=== PATIENT | female | born 1975 | race Caucasian/White ===

== ENCOUNTER 2020-12-14 13:17 | Emergency (ER) | payer OTHER ==
[2020-12-14] MEDS ORDERED: Adacel Vial IM ONE ×2 (13:25→13:33)
[2020-12-14 13:26] VITALS: BP 141/94; PULSE 89; O2SAT 98
--- NOTE | 2020-12-14 13:38 | XRAY ---
Indication: Pain following injury. Comparison: None 3 view right 3rd finger obtained. No bony, articular, or soft tissue abnormalities.
--- NOTE | 2020-12-14 13:47 | ERPHSYRPT ---
- History of Present Illness Source: patient Exam Limitations: no limitations Patient Subjective Stated Complaint: finger injury, shut 3rd digit of R hand in trailer door Triage Nursing Assessment: pt to ED c/o finger injury, r hand 3rd digit. 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 bleeding and open to air on arrival. pt states "worst pain ever" when asked to rate 1-10. unable to assess cap refil d/t injury location. unknown last tetanus. Physician History: R 3rd digit vs trailor door before arrival. Pt is R handed and denies other/previous injury. Pain is mild. Tetanus needs to be updated. Occurred: just prior to arrival Method of Injury: direct blow (Door vs finger) Quality: aching Severity of Pain-Max: mild Severity of Pain-Current: mild Extremities Pain Location: 3rd finger: right Modifying Factors: Improves With: movement Associated Symptoms: none Allergies/Adverse Reactions: Penicillins Allergy (Verified 12/14/20 13:26) Hives Home Medications: Sertraline HCl 20 mg PO DAILY 12/14/20 [History] Hx Tetanus, Diphtheria Vaccination/Date Given: No Hx Influenza Vaccination/Date Given: No Hx Pneumococcal Vaccination/Date Given: No Immunizations Up to Date: No Travel Risk - International Travel Have you traveled outside of the country in past 3 weeks: No - Coronavirus Screening Are you exhibiting any of the following symptoms?: No Close contact with a COVID-19 positive Pt in past 14-21 Days: No - Vaccine Status Have you recieved a Covid-19 vaccination: No - Review of Systems Constitutional: No Symptoms Eyes: No Symptoms Ears, Nose, & Throat: No Symptoms Respiratory: No Symptoms Cardiac: No Symptoms Abdominal/Gastrointestinal: No Symptoms Genitourinary Symptoms: No Symptoms Skin: No Symptoms Neurological: No Symptoms Psychological: No Symptoms Endocrine: No Symptoms Hematologic/Lymphatic: No Symptoms Immunological/Allergic: No Symptoms - Past Medical History Pertinent Past Medical History: Yes Psycho-Social History: Anxiety, Depression, Other - Past Surgical History Past Surgical History: Yes Female Surgical History: Dilation & Curettage, Other Other Surgical History: uterine ablasion 10 years ago - Social History Smoking Status: Never smoker Exposure to second hand smoke: No Drug Use: none Patient Lives Alone: No Significant Family History: no pertinent family hx - Female History Hx Now: No - Nursing Vital Signs Nursing Vital Signs: Initial Vital Signs Temperature 98.2 F 12/14/20 13:21 Pulse Rate 89 12/14/20 13:21 Respiratory Rate 14 12/14/20 13:21 Blood Pressure 141/94 12/14/20 13:21 O2 Sat by Pulse Oximetry 98 12/14/20 13:21 Pain Scale Pain Intensity 10 - Physical Exam General Appearance: no apparent distress Eyes, Ears, Nose, Throat Exam: normal ENT inspection, TMs normal, pharynx normal Neck Exam: normal inspection, non-tender, supple, full range of motion Cardiovascular/Respiratory Exam: normal breath sounds, regular rate/rhythm, heart sounds normal, no respiratory distress Abdominal Exam: non-tender Back Exam: normal inspection, normal range of motion Shoulder Exam: normal inspection Elbow/Forearm Exam: normal inspection Wrist Exam: normal inspection Hand Exam: nail injury (Skin avulsion on radial side of R 3rd digit distally/Medial nail border w mild involvement/No subungal hematoma/Good capillary return and sensation) Neuro/Tendon Exam: normal sensation, normal motor functions, normal tendon functions, responds to pain Mental Status Exam: alert, oriented x 3, cooperative Skin Exam: normal color, warm, dry SpO2 Interpretation: normal SpO2: 98 O2 Delivery: Room Air - Course Nursing assessment & vital signs reviewed: Yes - Radiology Exams Hand X-ray Interpretation: Discussed w/ radiologist (R3rd digit neg per rad) Ordered Tests: Active Orders 24 hr Category Date Time Status FINGER(S) Stat Exams 12/14/20 13:31 Completed Medication Summary Discontinued Medications Generic Name Dose Route Start Last Admin Trade Name Freq PRN Reason Stop Dose Admin Diphtheria/Tetanus/Acell Pertussis 0.5 ml 12/14/20 13:25 12/14/20 13:34 Adacel Vial IM 12/14/20 13:26 0.5 ml .ONCE ONE Administration Diphtheria/Tetanus/Acell Pertussis Confirm 12/14/20 13:33 Adacel Vial Administered 12/14/20 13:34 Dose 0.5 ml IM .STK-MED ONE - Progress Progress Note: 12/14/20 13:48 Tdap given Wound cleansed w Hibiclens/Bandaged per nursing/No need for repair Counseled pt/family regarding: need for follow-up - Departure Departure Disposition: Home Clinical Impression: Crushed finger, distal Condition: Stable Critical Care Time: No Referrals: SAMANTHA THOMAS [Primary Care Provider] - Instructions: Crush Injury (DC) Additional Instructions: Wash finger twice a day with soap/water Apply antibiotic ointment Watch for signs of infection-redness/pain/pus/temperature greater than 100.5 Motrin/tylenol for pain
== END 2020-12-14 14:00 | disposition home or self-care (01) ==
LOC: ED 13:17
DX: S67.192A Crushing injury of right middle finger, initial encounter (principal); X58.XXXA Exposure to other specified factors, initial encounter; Y93.89 Activity, other specified; Y92.89 Other specified places as the place of occurrence of the external cause
CPT/HCPCS: 73140; 90471; 90715; 99283